=== PATIENT | male | born 1965 | race Caucasian/White ===

== ENCOUNTER 2025-06-16 14:56 | Inpatient (IN) | payer SELFPAY ==
[~2025-06-16] VITALS: Ht 187.9 cm; Wt 81.8 kg
[2025-06-16 15:57] VITALS: BP 149/96
[2025-06-16] MEDS ORDERED: SODIUM CHLORIDE 0.9% 1,000 ML IV ONE ×2 (17:20→20:15)
[2025-06-16] MEDS ORDERED: Ondansetron Hydrochloride 4 MG/2 ML VIAL IV ONE (17:20)
[2025-06-16 17:29] LABS: BASO # 0.1 10*3/uL (0.0-0.1); BASO % 0.5 % (0.0-1.0); EOS # 0.0 10*3/uL (0.0-0.4); EOS % 0.3 % (1.0-4.0); MEAN CELL VOLUME 95.5 fl (80.0-94.0); MEAN CORPUSCULAR HGB 33.3 pg (27.0-31.0); MEAN PLATELET VOLUME 9.2 fl (9.6-12.3); MONO # 0.9 10*3/uL (0.1-1.0); MONO % 7.0 % (3.0-9.0); NEUT # 8.9 10*3/uL (2.3-7.9); NEUT % 71.8 % (47.0-73.0); NUCLEATED RED BLOOD CELL 0.0 % (0.0-0.0); NUCLEATED RED BLOOD CELL 0.0 10*3/uL (0.0-0.0); PLATELET COUNT AUTOMATED 228 10*3/uL (130-400); RED CELL DISTRI WIDTH 13.2 % (0-14.5)
[2025-06-16 17:40] LABS: ACT PARTIAL THROMBO TIME 29.3 SECONDS (20.0-32.1)
[2025-06-16 17:52] LABS: BUN 14 mg/dl (9-23); SGPT/ALT 33 U/L (5-49)
[2025-06-16] MEDS ORDERED: SODIUM CHLORIDE 0.9% 1,000 ML IV SCH ×2 (19:55→20:35)
[2025-06-16] MEDS ORDERED: Ondansetron Hydrochloride 4 MG/2 ML VIAL IV PRN (19:55)
[2025-06-16] MEDS ORDERED: BISACODYL 5 MG TAB PO PRN (19:55)
[2025-06-16] MEDS ORDERED: Acetaminophen/Hydrocodone 5 MG/325 MG TABLET PO PRN (19:55)
[2025-06-16] MEDS ORDERED: SODIUM CHLORIDE 0.9% 500 ML IV ONE (20:15)
[2025-06-16 23:39] VITALS: BP 146/96
[2025-06-17] MEDS ORDERED: PRILOSEC20 M1 PO (01:00)
[2025-06-17 02:00] VITALS: BP 162/100
[2025-06-17 06:18] LABS: BASO # 0.1 10*3/uL (0.0-0.1); BASO % 0.6 % (0.0-1.0); EOS # 0.2 10*3/uL (0.0-0.4); EOS % 1.8 % (1.0-4.0); MEAN CELL VOLUME 95.2 fl (80.0-94.0); MEAN CORPUSCULAR HGB 33.6 pg (27.0-31.0); MEAN PLATELET VOLUME 9.6 fl (9.6-12.3); MONO # 0.7 10*3/uL (0.1-1.0); MONO % 7.7 % (3.0-9.0); NEUT # 5.9 10*3/uL (2.3-7.9); NEUT % 66.9 % (47.0-73.0); NUCLEATED RED BLOOD CELL 0.0 % (0.0-0.0); NUCLEATED RED BLOOD CELL 0.0 10*3/uL (0.0-0.0); PLATELET COUNT AUTOMATED 163 10*3/uL (130-400); RED CELL DISTRI WIDTH 13.2 % (0-14.5)
[2025-06-17 06:36] LABS: BUN 14 mg/dl (9-23); FREE T4 1.09 ng/dl (0.89-1.76)
[2025-06-17 07:05] LABS: VITAMIN D, 25-HYDROXY 34.4 ng/mL (30-100)
[2025-06-17 08:00] VITALS: BP 164/97
[2025-06-17] MEDS ORDERED: HYDROmorphONE Hydrochloride 0.5 MG/0.5 ML SYRINGE IV PRN (09:25)
[2025-06-17 12:00] VITALS: BP 167/99
[2025-06-17 16:00] VITALS: BP 166/97
[2025-06-17 17:58] VITALS: BP 156/99
[2025-06-17 20:00] VITALS: BP 162/98
[2025-06-17 21:44] LABS: LDL CHOLESTEROL 32 mg/dL (9-159)
[2025-06-18] VITALS: BP 138/98
[2025-06-18 05:58] LABS: BASO # 0.0 10*3/uL (0.0-0.1); BASO % 0.6 % (0.0-1.0); EOS # 0.2 10*3/uL (0.0-0.4); EOS % 3.3 % (1.0-4.0); MEAN CELL VOLUME 95.1 fl (80.0-94.0); MEAN CORPUSCULAR HGB 33.7 pg (27.0-31.0); MEAN PLATELET VOLUME 10.1 fl (9.6-12.3); MONO # 0.6 10*3/uL (0.1-1.0); MONO % 7.7 % (3.0-9.0); NEUT # 4.9 10*3/uL (2.3-7.9); NEUT % 67.6 % (47.0-73.0); NUCLEATED RED BLOOD CELL 0.0 % (0.0-0.0); NUCLEATED RED BLOOD CELL 0.0 10*3/uL (0.0-0.0); PLATELET COUNT AUTOMATED 144 10*3/uL (130-400); RED CELL DISTRI WIDTH 13.2 % (0-14.5)
[2025-06-18 06:14] LABS: BUN 9 mg/dl (9-23)
[2025-06-18 08:00] VITALS: BP 155/99
[2025-06-18 12:00] VITALS: BP 148/96
[2025-06-18 16:00] VITALS: BP 137/88
[2025-06-18 20:00] VITALS: BP 140/100
[2025-06-19] VITALS: BP 156/98
[2025-06-19 05:52] LABS: BUN 8 mg/dl (9-23)
[2025-06-19 08:00] VITALS: BP 124/81
[2025-06-19] MEDS ORDERED: Acetaminophen/Hydrocodone 5 MG/325 MG TABLET PO PRN (11:10)
[2025-06-19 11:48] VITALS: BP 147/90
[2025-06-19] MEDS ORDERED: HYDROCODONE-AC1 EAC1 PO (14:19)
== END 2025-06-19 15:16 | disposition home or self-care (01) | DRG 438 ==
LOC: ED 14:56 → EDHOLD 18:23 → 4E 18:23 → EDHOLD 19:57 → 4E 06-17 00:06
PROVIDERS: Emergency Medicine; Student in an Organized Health Care Education/Training Program; ADMIT Internal Medicine; ATTEND Internal Medicine
DX: K85.90 Acute pancreatitis without necrosis or infection, unspecified (principal); J18.9 Pneumonia, unspecified organism; E87.20 Acidosis, unspecified; R65.10 Systemic inflammatory response syndrome (SIRS) of non-infectious origin without acute organ dysfunction; D72.829 Elevated white blood cell count, unspecified; D75.89 Other specified diseases of blood and blood-forming organs; F17.210 Nicotine dependence, cigarettes, uncomplicated; K21.9 Gastro-esophageal reflux disease without esophagitis; Z79.899 Other long term (current) drug therapy; Z80.0 Family history of malignant neoplasm of digestive organs; Z80.8 Family history of malignant neoplasm of other organs or systems